=== PATIENT | male | born 1980 | race Caucasian/White ===

== ENCOUNTER 2021-08-09 15:48 | Emergency (ER) | payer SELFPAY ==
[~2021-08-09] VITALS: Ht 170.2 cm; Wt 80.0 kg
[2021-08-09] MEDS ORDERED: TETRACAINE 0.5% OPHTH DROPS 4ML LEFTEYE ONE (18:30)
[2021-08-09] MEDS ORDERED: BRIM10DR2 LEFTEYE (19:05)
[2021-08-09] MEDS ORDERED: IBUPROFEN 600MG TABLET PO ONE (19:15)
[2021-08-09] MEDS ORDERED: ACETAZOLAMIDE 500MG ER CAPSULE PO ONE (19:15)
[2021-08-09 21:36] VITALS: BP 116/79
== END 2021-08-09 21:37 | disposition home or self-care (01) ==
LOC: ER 15:48
DX: H40.9 Unspecified glaucoma (principal); Z87.828 Personal history of other (healed) physical injury and trauma; F20.9 Schizophrenia, unspecified; Z86.59 Personal history of other mental and behavioral disorders
CPT/HCPCS: 99283